=== PATIENT | female | born 1970 | race Caucasian/White ===

== ENCOUNTER 2023-03-18 07:15 | Day surgery (SDC) | payer BC ==
[~2023-03-18] VITALS: Ht 154.9 cm; Wt 122.5 kg
[2023-03-18] MEDS ORDERED: MIDAZOLAM HCL 5 MG/5 ML VIAL ONE (07:25)
[2023-03-18] MEDS ORDERED: fentaNYL CITRATE/PF 100 MCG/2 ML AMP ONE (07:25)
[2023-03-18 07:52] VITALS: O2SAT 99
[2023-03-18] MEDS ORDERED: DIPHENHYDRAMINE INJ 50 MG/ML VIAL ONE (08:34)
[2023-03-18 10:15] VITALS: BP_SYST 120; PULSE 72; RESP 18
== END 2023-03-18 09:35 | disposition home or self-care (01) ==
LOC: SDS 07:15 → SMU 07:23 → SDS 09:35
PROVIDERS: ATTEND Internal Medicine
DX: Z12.11 Encounter for screening for malignant neoplasm of colon (principal); K52.9 Noninfective gastroenteritis and colitis, unspecified; K63.5 Polyp of colon; K57.30 Diverticulosis of large intestine without perforation or abscess without bleeding; Z80.0 Family history of malignant neoplasm of digestive organs; Z79.899 Other long term (current) drug therapy
CPT/HCPCS: 45380; 88305; 99152; G0378; J1200; J2250; J3010